=== PATIENT | male | born 1990 | race Caucasian/White ===

== ENCOUNTER 2024-06-14 11:28 | Outpatient (CLI) | payer OTHER, SELFPAY ==
[2024-06-14 12:20] LABS: Absolute Lymphocyte Count 1.76 X10^3/uL (0.83-4.51); Absolute Neutrophil Count 5.6 X10^3/uL (2.0-7.7); Basophil# 0.03 X10^3/uL; Basophil% 0.4 % (0-1); Eosinophil# 0.02 X10^3/uL; Eosinophils% 0.3 % (0-5); Hematocrit 41.8 % (40-54); Hemoglobin 13.9 g/dL (13.0-16.5); Lymphocyte # 1.76 X10^3/ul (0.83-4.51); Lymphocyte % 22.2 % (19-41); Mean Corp Hgb Conc 33.3 g/dL (32-36); Mean Corpuscular Hgb 27.6 pg (27.0-32.0); Mean Corpuscular Volume 82.9 fL (80-94); Mean Platelet Vol. 10.3 fl (6.2-12.0); Monocyte# 0.49 X10^3/uL; Monocyte% 6.2 % (0-10); NRBC Flagged by Analyzer 0 % (0-5); Neutrophil # 5.59 X10^3/uL (2.7-7.7); Neutrophil % 70.4 % (47-70); Platelet Count 199 K/mm3 (150-450); RBC Distribution Width CV 13.2 % (11.6-14.6); RBC Distribution Width SD 39.7 fl (35.1-43.9); Red Blood Count 5.04 M/mm3 (4.6-6.2); White Blood Count 7.9 K/mm3 (4.4-11.0)
[2024-06-14 12:23] LABS: Erythrocyte Sedimentation Rate < 1 mm/hr (0-20)
[2024-06-14 12:52] LABS: ALB/GLOB Ratio 1.3 RATIO (0.9-2.4); AST(SGOT) 15 U/L (15-37); Alanine Aminotransfer ALT/SGPT 26 U/L (16-61); Albumin, Serum 4.4 g/dL (3.2-5.0); Alkaline Phosphatase 56 U/L (45-117); Anion Gap 3 (5-15); BUN 26 mg/dL (7-18); BUN/Creat Ratio 24.5 RATIO (10-20); CRP 3.37 mg/L (0.0-3.0); Calcium,Total 9.8 mg/dL (8.5-10.1); Chloride 106 mmol/L (98-107); Creatinine, Serum 1.06 mg/dL (0.70-1.30); EST Glomerular Filtration Rate 85 mL/min (>60); Est Glom Filt Rate - Afr Amer 103 mL/min (>60); Free T3 2.6 pg/mL (2.18-3.98); Globulin 3.4 g/dL (2.2-4.2); Glucose 88 mg/dL (74-106); LDH 153 U/L (87-241); Potassium 3.6 mmol/L (3.5-5.1); Protein, Total 7.8 g/dL (6.4-8.2); Sodium Level 139 mmol/L (136-145)
[2024-06-17 16:09] LABS: Anti-Centromere B Ab <0.2 AI (0.0-0.9); Anti-Chromatin <0.2 AI (0.0-0.9); Anti-Jo <0.2 AI (0.0-0.9); Anti-Scleroderma-70 AB <0.2 AI (0.0-0.9); Anti-dsDNA Ab 5 IU/mL (0-9); Beef <0.10 kU/L (Class 0); Chocolate <0.10 kU/L (Class 0); Codfish <0.10 kU/L (Class 0); Corn <0.10 kU/L (Class 0); Egg, Whole <0.10 kU/L (Class 0); Milk (Cow) <0.10 kU/L (Class 0); Mussels <0.10 kU/L (Class 0); Peanut <0.10 kU/L (Class 0); Pork <0.10 kU/L (Class 0); RNP Ab 0.7 AI (0.0-0.9); SJOGREN'S Anti-SS-A test < 0.2 AI (0.0-0.9); SJOGREN'S Anti-SS-B test 0.3 AI (0.0-0.9); Salmon <0.10 kU/L (Class 0); Shrimp <0.10 kU/L (Class 0); Smith Ab <0.2 AI (0.0-0.9); Soybean <0.10 kU/L (Class 0); Tuna <0.10 kU/L (Class 0); Wheat <0.10 kU/L (Class 0)
[2024-06-18 16:10] LABS: ACCA 23 units (0-90); ALCA 9 units (0-60); AMCA 33 units (0-100); Albumin 4.5 g/dL (2.9-4.4); Alpha-1-Globulins 0.2 g/dL (0.0-0.4); Alpha-2-Globulins 0.6 g/dL (0.4-1.0); Cytoplasmic Ab (C-ANCA) <1:20 titer (Neg:<1:20); Endomysial Antibody IgA Negative (Negative); Gamma Globulin 1.1 g/dL (0.4-1.8); Immunoglobulin A 89 mg/dL (90-386); Immunoglobulin E 18 IU/mL (6-495); Immunoglobulin G 1138 mg/dL (603-1613); Immunoglobulin M 105 mg/dL (20-172); PROEL- TOTAL PROTEIN 7.3 g/dL (6.0-8.5); Perinuclear Ab (P-ANCA) <1:20 titer (Neg:<1:20); gASCA 29 units (0-50); t-Transglutaminase IgA <2 U/mL (0-3)
== END 2024-06-14 23:59 | disposition home or self-care (01) ==
LOC: LAB 11:31
PROVIDERS: Student in an Organized Health Care Education/Training Program; PCP Family Medicine; Referring Provider Internal Medicine Gastroenterology; Visit Provider Internal Medicine Gastroenterology
DX: R19.7 Diarrhea, unspecified (principal)
CPT/HCPCS: 36415; 80053; 82784; 82785; 83516; 83615; 84165; 84439; 84443; 84481; 85025; 85652; 86003; 86005; 86036; 86140; 86225; 86235; 86255; 86256; 86334; 86671

== ENCOUNTER 2024-07-04 05:45 | Day surgery (SDC) | payer OTHER, SELFPAY ==
[2024-07-04] VITALS (9 sets, daily range): BP systolic 80–120; BP diastolic 45–84; PULSE 53–71; RESP 16; TEMP 36.1–36.2; O2SAT 98–100; BMI 22.4
--- NOTE | 2024-07-04 | COLBX_PTH ---
PATIENT: SHAMA REECE LOC: EN U#:[id number] AGE/SX: 33/M ROOM: RE07/04/[address]: Dr. Marc Ivan DO : 1990 BED: DIS: 07/04/2024 SPEC #: [id number] RECD: 07/04/24 13:10 STATUS: FRANCI REJam #: [id number] SKYLAR: 07/04/24 00:[address]: Marc Ivan DEPT: SURGICAL PATHOLOGY RECD BY: Mick Arreola ENTERED: 07/04/24 13:11 SP TYPE: COLON BX OTHR DR: Dr. Salvador Jimenez DO Tissues: A - Ileum, NOS B - COLON BIOPSY Procedures: Surgery Specimen Level IV HEADER OPERATION: Colonoscopy biopsy PRE-OP DIAGNOSIS: Diarrhea TISSUE SUBMITTED: A- Terminal ileum biopsy, B- Random colonic biopsy MICROSCOPIC DIAGNOSIS A. Terminal ileum, biopsy: No pathologic change. B. Colon, random biopsy: No pathologic change. AM. 07/05/2024 MICROSCOPIC DESCRIPTION Slides are reviewed. GROSS DESCRIPTION A. Received in fixative is one container labeled with the patient's name and designated Terminal ileum biopsy. The specimen consists of multiple irregular fragments of light capellan soft tissue that in aggregate measure 1.2 x 0.3 x 0.1 cm. The specimen is totally submitted in one cassette. B. Received in fixative is one container labeled with the patient's name and designated Random colonic biopsy. The specimen consists of multiple irregular fragments of light capellan soft tissue that in aggregate measure 1.8 x 0.5 x 0.1 cm. The specimen is totally submitted in one cassette. 07/04/2024 TC:5 CPT:10978v8
--- NOTE | 2024-07-04 06:30 | HP.PCM_ITS ---
History and Physical Date of Admission: 07/04/24 SHAMA REECE, is a 33 M who presents to the office today for establishment with [facility]. Patient has a long hx of IBS type symptoms going back to his childhood. He typically has constipation with diarrhea but has had worsening in diarrhea for the past couple months. He has had a 20lbs unintentional weightless in the past 6 weeks. He is eating the same amount but having diarrhea after each meal. He avoids all pop as this gives him diarrhea and abdominal pain. His PCP put him on a course of prednisone which he does not feel has been helpful. He admits to being under a lot of stress recently. He tells me he has a family history of Crohn's disease and colon cancer. He has never had a full GI workup for his symptoms. Denies having colonoscopy or EGD in the past. He denies heartburn, vomiting, or melena. ROS Const Constitutional: Positive for fatigue and weight change (weight loss); No fever(s) ENT ENT: No difficulty swallowing Gastro GI: Positive for abdominal pain, bloating, change in bowel habits, constipation, diarrhea, excessive flatus, Blood in stool and nausea/dyspepsia; No belching, change in stool character, coffee ground emesis, cramping, heartburn, difficulty swallowing, feeling full early, incontinent of stools, Vomiting blood/hematemesis, loose stools, Black,tarry stools, pain with swallowing, vomiting or other Musc Musculoskeletal: Positive for back pain, numbness, tingling and restless legs; No joint pain Skin Skin: No yellowing of the eye or itchy eyes Neuro Neurology: Positive for numbness, tingling and restless legs Psych Psychiatric: No anxiety and No depression Endo Endocrine: Positive for fatigue and weight change (weight loss) Aller/Imm Allergy/Immunologic: No itchy eyes Billy/Lymp Hematologic/Lymphatic: No easy bleeding or easy bruising Exam Const General: cooperative and comfortable Nutritional Appearance: average body habitus and well nourished [facility] Head: normal to inspection Ears: hearing grossly normal bilaterally Nose: external nose normal Face and sinus: normal facial exam Eyes General: appearance normal, both eyes and all related structures Neck Neck: normal visual inspection Chest Chest palpation & inspection: normal inspection of the chest Resp Effort & Inspection: normal respiratory effort GI Inspection: normal to inspection Skin General: no rashes or lesions noted Neuro General: patient alert Extrem General: normal to inspection Psych Affect: normal affect Assessment and Plan Assessment and Plan (1) Diarrhea: Status: Acute Plan: Pt is a 33 yo male here today for acute on chronic diarrhea that has been going on for the past 6 weeks. He has been diagnosed in the past with IBS but has never had flares this severe. He has had a 20lbs weight loss in the past 6 weeks. He has family hx of Crohns and colon cancer. We will order stool testing to rule out inflammation or infection. I will also order blood work to rule out IBD, celiac, food allergens or other autoimmune conditions. Pending these results he may need MR enterography. He does not wish to be on medications so we will hold off on treating his diarrhea. He was prescribed prednisone from his PCP he will continue the taper for nwo. He will be scheduled for a colonoscopy. He will f/u in 3 months. -Colonoscopy scheduled -Ordered CBC, IBD panel, celiac panel, DEJUAN, ANCA, calprotectin, lactoferrin, enteric pathogen, Giardia, ova, parasite, c.dif -f/u in 3 months Orders: Orders Allergen, Food Profile 14 Today R19.7 - Diarrhea, unspecified DEJUAN Comprehensive Panel Today R19.7 - Diarrhea, unspecified ANCA Today R19.7 - Diarrhea, unspecified Calprotectin, Stool Today R19.7 - Diarrhea, unspecified CBC W/Diff, Automated Today R19.7 - Diarrhea, unspecified CDIFF (PCR) Today R19.7 - Diarrhea, unspecified Celiac Disease Profile Today R19.7 - Diarrhea, unspecified Comprehensive Metabolic Profil Today R19.7 - Diarrhea, unspecified CRP Today R19.7 - Diarrhea, unspecified ENTERIC PATHOGEN PANEL STOOL Today K58.9 - Irritable bowel syndrome without diarrhea, R19.7 - Diarrhea, unspecified Erythrocyte Sed Rate Today R19.7 - Diarrhea, unspecified Giardia Lamblia, Stool EIA Today R19.7 - Diarrhea, unspecified IBD Expanded Profile Today R19.7 - Diarrhea, unspecified DAVID + Protein Elect, Serum Today R19.7 - Diarrhea, unspecified Thyroid Stim Hormone (TSH) Today R19.7 - Diarrhea, unspecified T4 Free Direct Today R19.7 - Diarrhea, unspecified Free T3 Today R19.7 - Diarrhea, unspecified Stool Lactoferrin/WBC Today K58.9 - Irritable bowel syndrome without diarrhea, R19.7 - Diarrhea, unspecified Pancreatic Elastase, Fecal Today R19.7 - Diarrhea, unspecified Ova and Parasites [id number] Today K58.9 - Irritable bowel syndrome without diarrhea, R19.7 - Diarrhea, unspecified LDH Today R19.7 - Diarrhea, unspecified Immunoglobulins G/A/M/E Today R19.7 - Diarrhea, unspecified I have examined the patient and the H&P has been reviewed. There are no clinical changes since date of exam.
--- NOTE | 2024-07-04 06:34 | PRE.ANES_ITS ---
ASA Classification* ASA Classification ASA Classification: 2 Assessment & Plan Anesthesia* Anesthesia Assessment Anesthesia Assessment: Discussed sedation and/or anesthesia options, risks, benefits, and alternatives with patient/parents/legal guardian/POA. Questions invited. The patient/parents/legal guardian/POA seems to understand and agrees to proceed with anesthesia plan. Reviewed the physical assessment, medical history, allergy history and patient home medications list prior to surgery/procedure/anesthetic and documented any changes. Performed airway and anesthesia risk assessments. Anesthesia Type Anesthesia Type: MAC Anesthesia Focused Assessment* Temperature: 97.1 F Pulse Rate: 64 Blood Pressure: 120/84 Respiratory Rate: 16 Pulse Ox: 100 Airway Assessment Mouth opens: >3 cm Mallampati Score: II Focused Labs Anesthesia Preop lab: CBC WBC 7.9 K/mm3 (4.4-11.0) 06/14/24 11:47 RBC 5.04 M/mm3 (4.6-6.2) 06/14/24 11:47 Hgb 13.9 g/dL (13.0-16.5) 06/14/24 11:47 Hct 41.8 % (40-54) 06/14/24 11:47 Plt Count 199 K/mm3 (150-450) 06/14/24 11:47 CHEMISTRY Potassium 3.6 mmol/L (3.5-5.1) 06/14/24 11:47 Sodium 139 mmol/L (136-145) 06/14/24 11:47 BUN 26 mg/dL (7-18) H 06/14/24 11:47 Creatinine 1.06 mg/dL (0.70-1.30) 06/14/24 11:47 Glucose 88 mg/dL (74-106) 06/14/24 11:47 TSH 1.430 uIU/mL (0.358-3.740) 06/14/24 11:47 COAG Pre-Assessment Diagnosis/Proposed Procedure Planned Operative Procedure(s): COLONOSCOPY Anesthesia History 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 When Was Last Pacemaker Check QUESTION #4 FULL TEXT: You/Your Family Experience fever (hyperthermia) with Anesthesia Last Oral Intake Last Oral intake: Last Oral Intake NPO since Meds taken in AM with sips of water? Meds patient instructed to take am of surgery PONV PONV - marketing recruiter: PONV - marketing recruiter Female No 06/17/24 08:08 HX of Motion Sickness No 06/17/24 08:08 HX of N/V After Surgery No 06/17/24 08:08 Non-Smoker No 06/17/24 08:08 Duration of Surgery greater No 06/17/24 08:08 than 60 minutes Number of Risk Factors PONV Score Height & Weight Height & Weight: Anesthesia: Height & Weight Height 5 ft 8 in 07/04/24 06:05 Weight: 66.9 kg 07/04/24 06:05 Body Mass Index (BMI) 22.4 07/04/24 06:05 Respiratory Assessment Respiratory Assessment - marketing recruiter: Respiratory Tract Infection Hx - marketing recruiter Hx Respiratory Tract Infection No 06/17/24 08:08 STOP Sleep Apnea STOP Sleep Apnea - marketing recruiter: STOP Sleep Apnea - marketing recruiter Hx Hypertension No 06/17/24 08:08 Hx Sleep Apnea No 06/17/24 08:08 CPAP BIPAP Do you snore loudly (louder No 06/17/24 08:08 than talking or can be heard Do you often feel tired/ No 06/17/24 08:08 fatigued/ sleepy during daytime? Has anyone observed you stop No 06/17/24 08:08 breathing during sleep? STOP Results Negative 06/17/24 08:08 QUESTION #5 FULL TEXT : Do you snore loudly (louder than talking or can be heard through closed doors)? 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 Specify any problems Hx of Preganancy in last 3 N/A 06/17/24 08:08 Months Nurse Filling Out Transfusion [facility] 06/17/24 08:08 & Questions: Date: 06/17/24 06/17/24 08:08 Time: 08:16 06/17/24 08:08 Patient unable to answer at this time (ie. confused, unrespo /Reproduction History /Reproductive History - marketing recruiter: /Reproductive Hx- marketing recruiter Hx Now No 06/17/24 08:08 Gestational Age (in weeks): EDC: Hx Hx Para Hx Section SAB PFSH Medical History History of gynecomastia Wears glasses Alcohol use Depression Anxiety Bruising History of steroid therapy Low iron Back pain Migraine headache Restless legs History of IBS Smoker Home Medications ?Medication ?Instructions ?Recorded ?Last Taken ?Type prednisone 10 mg tablet 10 mg PO QDAY 06/14/24 Unknown History tizanidine 4 mg capsule 4 mg PO Q8H PRN muscle spasticity 06/14/24 Unknown History Allergy/AdvReac Type Severity Reaction Status Date / Time No Known Allergies Allergy Verified 07/04/24 06:05 Surgical History History of wisdom tooth extraction History of appendectomy Social History Smoking Status: Current every day smoker tobacco type: e-cigarettes Review of Systems (Anesthesia) ROS Narrative System reviewed and no additional complaints, except as documented.
--- NOTE | 2024-07-04 07:13 | OP.COLON_ITS ---
Patient Name: Nikos Doyle Procedure Date: 07/04/2024 6:45 AM Date of : 1990 Age: 33 Procedure: Colonoscopy Indications: Clinically significant diarrhea of unexplained origin Providers: Marc Ivan DO Referring MD: Salvador Jimenez Medicines: Monitored Anesthesia Care Patient Profile: This is a 33 year old male. Refer to note in patient chart for documentation of history and physical. Last Colonoscopy: none. The patient's first colonoscopy is today. Complications: No immediate complications. Procedure: Pre-Anesthesia Assessment: - Prior to the procedure, a History and Physical was performed, and patient medications and allergies were reviewed. The patient is competent. The risks and benefits of the procedure and the sedation options and risks were discussed with the patient. All questions were answered and informed consent was obtained. Patient identification and proposed procedure were verified by the physician in the pre-procedure area. Mental Status Examination: alert and oriented. Airway Examination: normal oropharyngeal airway and neck mobility. Respiratory Examination: clear to auscultation. CV Examination: normal. Prophylactic Antibiotics: The patient does not require prophylactic antibiotics. Prior Anticoagulants: The patient has taken no anticoagulant or antiplatelet agents. ASA Grade Assessment: II - A patient with mild systemic disease. After reviewing the risks and benefits, the patient was deemed in satisfactory condition to undergo the procedure. The anesthesia plan was to use monitored anesthesia care (MAC). Immediately prior to administration of medications, the patient was re-assessed for adequacy to receive sedatives. The heart rate, respiratory rate, oxygen saturations, blood pressure, adequacy of pulmonary ventilation, and response to care were monitored throughout the procedure. The physical status of the patient was re-assessed after the procedure. After I obtained informed consent, the scope was passed under direct vision. Throughout the procedure, the patient's blood pressure, pulse, and oxygen saturations were monitored continuously. The pediatric colonoscope was introduced through the anus and advanced to the anus. The colonoscopy was performed without difficulty. The patient tolerated the procedure well. The quality of the bowel preparation was adequate. Scope In: 6:50:15 AM Scope Withdrawal Time 0 hours 12 minutes 42 seconds Scope Out: 7:07:21 AM Total Procedure Duration Time 0 hours 17 minutes 6 seconds Findings: The perianal and digital rectal examinations were normal. The colon (entire examined portion) appeared normal. Biopsies for histology were taken with a cold forceps from the entire colon for evaluation of microscopic colitis. Verification of patient identification for the specimen was done. Estimated blood loss was minimal. The terminal ileum appeared normal. Biopsies were taken with a cold forceps for histology. Verification of patient identification for the specimen was done. Estimated blood loss was minimal. Impression: - The entire examined colon is normal. Biopsied. - The examined portion of the ileum was normal. Biopsied. Recommendation: - Discharge patient to home. - Resume previous diet. - Continue present medications. - Await pathology results. - Repeat colonoscopy for surveillance based on pathology results. Procedure Code(s): --- Professional --- 95129, 52, Colonoscopy, flexible; with biopsy, single or multiple CPT copyright 2021 [employer]. All rights reserved. The codes documented in this report are preliminary and upon carcass washer review may be revised to meet current compliance requirements. Marc Ivan DO 07/04/2024 7:12:37 AM This report has been signed electronically. Number of Addenda: 0 Note Initiated On: 07/04/2024 6:45 AM
--- NOTE | 2024-07-04 07:13 | OP.CCLET_ITS ---
07/04/2024 Salvador Jimenez Re : Colonoscopy procedure for Nikos Doyle Dear Barbara This procedure was performed on June. My impressions and recommendations are as follows: Impressions : - The entire examined colon is normal. Biopsied. - The examined portion of the ileum was normal. Biopsied. Recommendations : - Discharge patient to home. - Resume previous diet. - Continue present medications. - Await pathology results. - Repeat colonoscopy for surveillance based on pathology results. My findings are described in the full procedure note, which is enclosed. If I can be of further assistance, please feel free to contact me at . Sincerely, Marc Ivan, 07/04/2024 7:12:37 AM This report has been signed electronically.
--- NOTE | 2024-07-04 07:18 | PCM.POST.ANE ---
Anesthesia: Postop Eval I Current Vital Signs Temperature: 97 F Pulse Rate: 57 Blood Pressure: 83/47 Respiratory Rate: 16 Pulse Ox: 98 Oxygen Delivery Method: Room Air Assessment Airway patent: Yes Spontaneous unlabored respirations: Yes Mental status: Asleep nausea: No Vomiting: No Anesthesia Complication: No Fluid Hydration Crystalloid volume administer (ml): 30 Total IV fluid infused: 30 Progress Note Anesthesia document: Postop Eval 1 completed: Yes
--- NOTE | 2024-07-04 07:52 | PCM.POSTANE2 ---
Anesthesia Postop Eval I Sum Postop Eval Completion status Anesthesia document: Postop Eval 1 completed: Yes Anesthesia Postop Eval I Summary Anesthesia Postop Eval I Summary: Anesthesia Postop Eval I: Assessment Summary Airway patent Yes 07/04/24 07:19 [email or web address] Spontaneous unlabored Yes 07/04/24 07:19 [email or web address] respirations Mental status Asleep 07/04/24 07:19 [email or web address] nausea No 07/04/24 07:19 [email or web address] Vomiting No 07/04/24 07:19 [email or web address] Anesthesia Postop Eval I: Fluid Summary Crystalloid volume administer 30 07/04/24 07:19 [email or web address] (ml) Colloids volume administered ( ml) Blood Product volume administered (ml) Total IV fluid infused 30 07/04/24 07:19 [email or web address] Anesthesia Postop Eval I: Summary Notes Anesthesia Complication No 07/04/24 07:19 [email or web address] Anesthesia Complication Comment: Post-operative progress note Anesthesia: Postop Eval II Evaluation Mental status: Awake Pain Level: 0 nausea: No Vomiting: No
== END 2024-07-04 08:26 | disposition home or self-care (01) ==
LOC: EN 05:46 → AC 05:46
PROVIDERS: PCP Family Medicine; Referring Provider Family Medicine; Visit Provider Internal Medicine Gastroenterology
PROC: 0DJD8ZZ Inspection of Lower Intestinal Tract, Via Natural or Artificial Opening Endoscopic (ICD-10-PCS; CPT 45378; principal; 2024-07-04 06:25)
DX: R19.7 Diarrhea, unspecified (principal); R63.4 Abnormal weight loss; F17.200 Nicotine dependence, unspecified, uncomplicated; Z80.0 Family history of malignant neoplasm of digestive organs
CPT/HCPCS: 45380; 88305; A4216; J2405